=== PATIENT | male | born 1950 | race Caucasian/White ===

== ENCOUNTER → 2017-02-02 | Outpatient (CLI) | payer OTHER ==
[~2017-02-02] MED LIST: ATOR20TA9 PO; FURO20TA3 PO; LEVO200T5 PO; LEVO25TA4 PO; LOSA50TA6 PO; OMEP-110 PO; SPIR100T2 PO
[2017-02-02 11:50] LABS: HEMATOCRIT 30.8 % (39.2-51.8); HEMOGLOBIN 10.7 g/dL (13.7-18.0); WHITE BLOOD COUNT 6.2 x10^3/uL (3.4-10)
[2017-02-02 12:00] LABS: BLOOD UREA NITROGEN 13 mg/dL (7-18)
[2017-02-02 12:04] LABS: ASPARTATE AMINO TRANSFERASE 59 U/L (15-37)
== END | disposition home or self-care (01) ==
LOC: STAR 10:54
PROVIDERS: ATTEND Surgery
DX: Z01.818 Encounter for other preprocedural examination (principal); K40.90 Unilateral inguinal hernia, without obstruction or gangrene, not specified as recurrent; R94.31 Abnormal electrocardiogram [ECG] [EKG]; R79.1 Abnormal coagulation profile
CPT/HCPCS: 36415; 80053; 85025; 85610; 85730; 93005

== ENCOUNTER 2017-02-08 12:03 | Day surgery (SDC) | payer OTHER ==
[~2017-02-08] VITALS: Ht 182.9 cm; Wt 86.5 kg
[2017-02-08 12:39] VITALS: BP 130/87
[2017-02-08] MEDS ORDERED: LACTATED RINGERS 1,000 ML IV SCH (12:43)
[2017-02-08] MEDS ORDERED: ONDANSETRON 2MG/ML, 2ML ONE (14:52)
[2017-02-08] MEDS ORDERED: FENTANYL PF 100 MCG/2ML ONE (14:52)
[2017-02-08] MEDS ORDERED: PROPOFOL 10 MG/ML, 20ML ONE (14:52)
[2017-02-08] MEDS ORDERED: MIDAZOLAM 1 MG/ML, 2ML ONE (14:52)
[2017-02-08] MEDS ORDERED: GLYCOPYRROLATE 0.2MG/1ML, 5ML ONE (14:52)
[2017-02-08] MEDS ORDERED: CEFAZOLIN 1,000 MG ONE (14:52)
[2017-02-08] MEDS ORDERED: NEOSTIGMINE 1 MG/ML, 10ML ONE (14:52)
[2017-02-08] MEDS ORDERED: PHENYLEPHRINE 10 MG/ML ONE (14:52)
[2017-02-08] MEDS ORDERED: ROCURONIUM 10 MG/ML,10ML ONE (14:52)
[2017-02-08] MEDS ORDERED: MEPERIDINE/PF 25MG/0.5ML IVPush PRN (15:00)
[2017-02-08] MEDS ORDERED: ONDANSETRON 2MG/ML, 2ML IVPush PRN (15:00)
[2017-02-08] MEDS ORDERED: OXYcodone 5 MG/5 ML ORAL.SOL UDC PO PRN (15:00)
[2017-02-08] MEDS ORDERED: ACETAMINOPHEN 325 MG TABLET PO PRN (15:00)
[2017-02-08] MEDS ORDERED: LABETALOL 5MG/ML, 20ML IV PRN (15:00)
[2017-02-08] MEDS ORDERED: PROMETHAZINE 25 MG/ML, 1ML IV PRN (15:00)
[2017-02-08] MEDS ORDERED: hydrALAzine 20 MG/ML, 1ML IV PRN (15:00)
[2017-02-08] MEDS ORDERED: BUPIVACAINE/PF 0.25% INFIL ONE (15:20)
[2017-02-08] MEDS: FENTANYL PF 100 MCG/2ML IV PRN ×3 (16:35→16:50)
[2017-02-08] MEDS: HYDROmorphone 1 MG/ML, 1ML IV PRN ×2 (17:12→17:20)
== END 2017-02-08 19:00 ==
LOC: OUT 12:03
PROVIDERS: ATTEND Surgery
DX: K40.30 Unilateral inguinal hernia, with obstruction, without gangrene, not specified as recurrent (principal); E78.00 Pure hypercholesterolemia, unspecified; I10 Essential (primary) hypertension; E03.9 Hypothyroidism, unspecified; I25.2 Old myocardial infarction; Z98.890 Other specified postprocedural states; E89.0 Postprocedural hypothyroidism; Z88.5 Allergy status to narcotic agent; Z88.8 Allergy status to other drugs, medicaments and biological substances
CPT/HCPCS: 49507; C1781; J0690; J1170; J2250; J2370; J2405; J2704; J2710; J3010; J3490; J7120

== ENCOUNTER 2017-02-09 08:54 | Emergency (ER) | payer OTHER ==
[~2017-02-09] VITALS: Ht 182.9 cm; Wt 89.9 kg
[2017-02-09 08:59] VITALS: BP 141/71
[2017-02-09] MEDS ORDERED: HYDROcodone/APAP 5/325 TABLET PO ONE (09:30)
[2017-02-09] MEDS ORDERED: ONDANSETRON ODT 4 MG PO ONE (09:30)
== END 2017-02-09 11:15 | disposition home or self-care (01) ==
LOC: ED 10:37
DX: R33.9 Retention of urine, unspecified (principal)
CPT/HCPCS: 51702; 99284; Q0162